=== PATIENT | female | born 1980 | race Caucasian/White ===

== ENCOUNTER 2016-11-30 10:17 | Emergency (ER) | payer SELFPAY ==
[2016-11-30 12:23] LABS: UDS - AMPHET POSITIVE QUAL (NEGATIVE); UDS - BARB NEGATIVE QUAL (NEGATIVE); UDS - BENZO POSITIVE QUAL (NEGATIVE); UDS - COCAINE NEGATIVE QUAL (NEGATIVE); UDS - METH NEGATIVE QUAL (NEGATIVE); UDS - OPIATE NEGATIVE QUAL (NEGATIVE); UDS - PCP NEGATIVE QUAL (NEGATIVE); UDS - THC POSITIVE QUAL (NEGATIVE)
[2016-11-30 12:33] LABS: APPEARANCE HAZY (CLEAR); BACTERIA MODERATE /hpf (NONE SEEN); BILIRUBIN NEGATIVE (NEGATIVE); COLOR ORANGE (YELLOW); EPITHELIAL CELLS 0-5 /hpf (0-5); GLUCOSE NEGATIVE (NEGATIVE); KETONE SMALL mg/dL (NEGATIVE); LEUKOCYTE ESTERASE 1+ (NEGATIVE); NITRITE NEGATIVE (NEGATIVE); PROTEIN TRACE mg/dL (NEGATIVE); RED CELLS - URINE 0-5 /hpf (0-5); SPECIFIC GRAVITY 1.025 (1.005-1.020); UROBILINOGEN NORMAL (NORMAL)
[2016-11-30 12:34] LABS: HCG URINE NEGATIVE (NEGATIVE); MUCUS <1+ /lpf (NONE SEEN)
== END 2016-11-30 14:45 | disposition home or self-care (01) ==
LOC: D.ER 10:17
PROVIDERS: Emergency Medicine; Physician Assistant
DX: R10.9 Unspecified abdominal pain (principal); F19.10 Other psychoactive substance abuse, uncomplicated; F17.200 Nicotine dependence, unspecified, uncomplicated

== ENCOUNTER 2017-04-28 18:04 | Inpatient (IN) | payer SELFPAY ==
[~2017-04-28] VITALS: Ht 162.6 cm; Wt 46.6 kg
[2017-04-28 18:56] LABS: COLOR BROWN (YELLOW)
[2017-04-28 18:57] LABS: APPEARANCE CLEAR (CLEAR); BILIRUBIN 1+ (NEGATIVE); GLUCOSE NEGATIVE (NEGATIVE); KETONE NEGATIVE (NEGATIVE); LEUKOCYTE ESTERASE NEGATIVE (NEGATIVE); NITRITE NEGATIVE (NEGATIVE); PROTEIN NEGATIVE (NEGATIVE)
[2017-04-28 18:58] LABS: BASOPHILS 0.3 % (0-2); EOSINOPHILS 0.6 % (0-7); HEMATOCRIT 40.5 % (36.0-48.0); HEMOGLOBIN 13.9 g/dL (12-16); IMMATURE GRANULOCYTES 0.1 % (0-5); MCH 29.1 pg (26.0-34.0); MCHC 34.3 g/dL (31.0-37.0); MCV 84.9 fL (80.0-100.0); MEAN PLATELET VOLUME 10.9 fL (7.4-10.4); MONOCYTES 6.4 % (2-11); NEUTROPHILS 64.6 % (40-80); PLATELET COUNT 335 10x3/uL (130-400); RBC 4.77 10x6/uL (4.00-5.40); RDW 19.9 % (11.5-14.5)
[2017-04-28 19:00] LABS: BACTERIA MANY /hpf (NONE SEEN); WHITE CELLS - URINE 0-5 /hpf (0-5)
[2017-04-28 19:04] LABS: HCG URINE NEGATIVE (NEGATIVE)
[2017-04-28 19:08] LABS: UDS - AMPHET POSITIVE QUAL (NEGATIVE); UDS - BARB NEGATIVE QUAL (NEGATIVE); UDS - BENZO NEGATIVE QUAL (NEGATIVE); UDS - COCAINE NEGATIVE QUAL (NEGATIVE); UDS - METH NEGATIVE QUAL (NEGATIVE); UDS - OPIATE NEGATIVE QUAL (NEGATIVE); UDS - PCP NEGATIVE QUAL (NEGATIVE); UDS - THC POSITIVE QUAL (NEGATIVE)
[2017-04-28 19:19] LABS: ALBUMIN 3.6 g/dL (3.4-5.0); ALKALINE PHOSPHATASE 526 U/L (46-116); ALT (SGPT) 2348 U/L (10-68); AMYLASE - SERUM 51 U/L (25-115); BILIRUBIN - TOTAL 14.67 mg/dL (0.2-1.3); CALC OSMOLALITY 270 mosm/kg (275-300); CALCIUM 8.9 mg/dL (8.5-10.1); CARBON DIOXIDE 27.9 mmol/L (21.0-32.0); CHLORIDE - SERUM 100 mmol/L (98-107); CREATININE - SERUM 0.4 mg/dL (0.6-1.3); GLUCOSE 90 mg/dL (74-106); LIPASE 199 U/L (73-393); POTASSIUM - SERUM 3.5 mmol/L (3.5-5.1); PROTEIN - SERUM 7.9 g/dL (6.4-8.2); SODIUM 137 mmol/L (136-145); UREA NITROGEN 5 mg/dL (7-18); eGFR NON AFRICAN AMERICAN > 90 mL/min (90-120)
[2017-04-29] VITALS (7 sets, daily range): BP systolic 98–119; BP diastolic 58–78; Ht 162.6 cm; Wt 46.6 kg
--- NOTE | 2017-04-29 00:17 | NUR ---
REPORT RECEIVED FROM BINH BARTLETT FROM THE ED. WAITING FOR PTS ARRIVAL.
--- NOTE | 2017-04-29 00:55 | NUR ---
PT RECEIVED VIA WHEELCHAIR, AWAKE, ALERT, ORIENTED, WITH BOYFRIEND AND FATHER AT BEDSIDE. PT DENIES ANY ACUTE NEEDS AT THIS TIME. CONTINUE TO MONITOR CLOSELY.
--- NOTE | 2017-04-29 02:00 | NUR ---
UPON COMPLETING MY ADMISSION ASSESSMENT, PTS BOYFRIEND, KATELYN ASKED TO TALK TO ME IN PRIVATE. HE STATED THAT PT DOES ACTIVELY USE METHAMPHETAMINE, AND HAS DONE SO RECENTLY. PT STATED IN HER HISTORY THAT SHE DOES NOT USE RECREATIONAL DRUGS. UPON REVIEWING PTS CHART, I NOTICED HER CT ABDOMEN/PELVIS SCAN SHOWS A TAMPON PRESENT IN THE VAGINA. PT STATED DURING HER HX THAT HER LAST MENSES WAS 04/12/17. I DID ASK FAMILY TO LEAVE THE ROOM WHILE I SPOKE TO PT IN PRIVATE ABOUT THIS. PT STATED THAT SHE HAD NO IDEA AND DOES NOT UNDERSTAND HOW THIS COULD HAVE HAPPENED. PT ASKED WHAT WOULD HAPPEN R/T THIS FINDING. I EXPLAINED TO PT THAT SHE COULD TRY AND RETRIEVE IT HERSELF, BUT THAT ONE OF OUR REVENUE ENFORCEMENT AGENT WOULD MOST LIKELY BE CONSULTED FOR REMOVAL. PT IS IN NO ACUTE DISTRESS. ORANGE JELLO AND LEMON ILIAMNA GIVEN TO PT. PT AND BOYFRIEND UNDERSTAND THAT SHE IS ON A CLEAR LIQUID DIET UNTIL FURTHER WORK UP CAN BE CONDUCTED. PT DENIES ANY OTHER NEEDS. CONTINUE TO MONITOR CLOSELY.
--- NOTE | 2017-04-29 04:52 | NUR ---
PT RESTING COMFORTABLY, STATES SHE IS NAUSEATED BUT NO VOMITING AT THIS TIME. PT DENIES ANY OTHER NEEDS. CONTINUE TO MONITOR CLOSELY.
[2017-04-29 05:04] LABS: BASOPHILS 0.4 % (0-2); EOSINOPHILS 1.4 % (0-7); HEMATOCRIT 35.8 % (36.0-48.0); HEMOGLOBIN 12.1 g/dL (12-16); IMMATURE GRANULOCYTES 0.2 % (0-5); LYMPHOCYTES 35.4 % (15-50); MCH 28.7 pg (26.0-34.0); MCHC 33.8 g/dL (31.0-37.0); MEAN PLATELET VOLUME 10.8 fL (7.4-10.4); MONOCYTES 8.3 % (2-11); NEUTROPHILS 54.3 % (40-80); PLATELET COUNT 261 10x3/uL (130-400); RBC 4.21 10x6/uL (4.00-5.40); RDW 20.4 % (11.5-14.5); WBC 5.5 10x3/uL (4.8-10.8)
[2017-04-29 05:32] LABS: ALKALINE PHOSPHATASE 395 U/L (46-116); BILIRUBIN - TOTAL 10.65 mg/dL (0.2-1.3); CALC OSMOLALITY 270 mosm/kg (275-300); CALCIUM 7.9 mg/dL (8.5-10.1); CARBON DIOXIDE 25.4 mmol/L (21.0-32.0); CHLORIDE - SERUM 103 mmol/L (98-107); CREATININE - SERUM 0.5 mg/dL (0.6-1.3); GLUCOSE 95 mg/dL (74-106); POTASSIUM - SERUM 3.4 mmol/L (3.5-5.1); SODIUM 137 mmol/L (136-145); UREA NITROGEN 3 mg/dL (7-18); eGFR NON AFRICAN AMERICAN > 90 mL/min (90-120)
[2017-04-29 05:33] LABS: ALBUMIN 2.6 g/dL (3.4-5.0); ALT (SGPT) 1649 U/L (10-68); PROTEIN - SERUM 5.9 g/dL (6.4-8.2)
--- NOTE | 2017-04-29 07:19 | NUR ---
PT STANDING UP IN ROOM. 2 FAMILY MEMBERS AT BEDSIDE. DENIES NEEDS AT THIS TIME. WILL CONTINUE TO MONITOR
--- NOTE | 2017-04-29 12:12 | HP ---
PATIENT: ZEB MENDEZ MEDICAL RECORD: [id number] ACCOUNT: [id number] LOCATION:[address] : [birth year] ADMISSION DATE: 04/28/17 HISTORY AND PHYSICAL EXAMINATION HISTORY OF PRESENT ILLNESS: A 36-year-old female who presented to the Emergency Room with painless jaundice, although she does admit to some right upper quadrant abdominal tenderness. PAST MEDICAL HISTORY: Significant for times 3, polysubstance abuse. Denies any IV use. Blood transfusion at . Denies having a primary care physician. REVIEW OF SYSTEMS: GENERAL: No known change in weight or appetite. HEENT: No cephalgia, visual changes, tinnitus, epistaxis or dysphagia. CARDIOVASCULAR: Denies chest pain or palpitations. PULMONARY: Denies hemoptysis, denies night sweats. GASTROINTESTINAL: Denies hematemesis, hematochezia or melena. Does admit episodic nausea and vomiting past 5 days, jaundice, yellowing of the eyes and skin. No prior history of liver problems. Denies any significant alcohol use. Does admit to marijuana and meth, oral; denies IV. GENITOURINARY: Denies dysuria. Reports that she has a tampon stuck, this was found as well on CT in the Emergency Room that has been there since 04/26/2017. MUSCULOSKELETAL: No acute changes. ENDOCRINE: Denies polyuria, polydipsia, or polyphagia. MEDICATIONS: No current medications. ALLERGIES: No known drug allergies. PHYSICAL EXAMINATION: VITAL SIGNS: Temperature 98.2, blood pressure is 98/58, heart rate 69, respirations 16, O2 sats 100% room air. GENERAL: Alert and oriented, no present distress. Mild jaundice. HEENT: Eyes icteric. Pupils equally round and reactive. Nares patent. Throat: No erythema. NECK: Supple, no JVD. HEART: Regular rate and rhythm. No S3, S4, no rub. LUNGS: Clear to auscultation bilaterally. Breathing is nonlabored. ABDOMEN: Soft, mild right upper quadrant tenderness. No rebound, no guarding. EXTREMITIES: Present times 4, no edema. NEUROLOGIC: No focal deficits, answers appropriately. SKIN: Warm and dry. Mild jaundice as noted above. LABORATORY DATA: CBC: White count 5.5, hemoglobin 12.1, hematocrit 35.8, platelets 261. Chemistry shows sodium of 137, potassium 3.4, chloride 103, bicarb 25.4, BUN 3, creatinine 0.5, glucose 95, calcium 7.9. Total bilirubin 10.65. AST is 1156, ALT is 1649, alkaline phosphatase 395. Urinalysis: Urine is brown, clear, negative for ketones, trace, blood, negative for nitrites, 1+ bilirubin, many bacteria. CT abdomen and pelvis, mild periportal edema, diffuse gallbladder wall thickening, nondistended gallbladder, portal veins patent. Spleen is normal. Moderate distention of the stomach with gas, solid material, enteric contrast. Uterus and ovaries appear normal. Tampon is oriented transversely in the vagina. This was confirmed discussion with the patient been HISTORY AND PHYSICAL [id number] ZEB MENDEZ JACQUELINE there going on 3-4 days. No other significant findings. Appendix appeared normal. ASSESSMENT: Acute jaundice, polysubstance abuse, denies IV drug use, elevated liver function tests, mild distention in gallbladder, transversely lodged tampon. PLAN: The patient is admitted. IV hydration. GI consulted. We will monitor liver enzymes after aggressive hydration. Consult gynecology, tampon retrieval eval and washing, empiric coverage with antibiotics. I counseled the patient on avoiding illicit substances. We will consult case monitor for outpatient support. TRANSINT:[id number] Voice Confirmation ID: [id number] DOCUMENT ID: [id number] LORENA VELASQUEZ DO at 1212 CC: [id number] DICTATION DATE: 04/29/17 0804 REHAB ASSISTANT: 04/29/17 1036 ADM IN [facility] [address] [place] [place] [id number]
--- NOTE | 2017-04-29 15:04 | NUR ---
ROUNDING COMPLETED WITH AND TAMPON REMOVED FROM PTS VAGINA. PT VOICED RELIEF AND THANKS AND IS WANTING TO SHOWER AT THIS TIME. DISCONNECTED PT FROM IV FLUIDS AND WRAPPED PIV. PT DENIES ANY FURTHER NEEDS AT THIS TIME. WILL CTM.
--- NOTE | 2017-04-29 17:03 | NUR ---
Patient Name: ZEB MENDEZ Admission Status: ER Accout number: [id number] Admission Date: 04-28-2017 : 1980 Admission Diagnosis:UNSPECIFIED JAUNDICE Attending: JANEL Current LOS: 1 Anticipated DC Date: Planned Disposition: Home Primary Insurance: UNINSURED DISCOUNT PLAN Discharge Planning Comments: * Is the patient Alert and Oriented? Yes 0 * How many steps to enter\exit or inside your home? 1 0 * PCP NONE 0 * Pharmacy [facility] 0 * Preadmission Environment Home with Family 0 * ADLs Independent 0 * Equipment None 0 * Other Equipment NO MEDICAL EQUIPMENT PROVIDER PREFERENCE 0 * List name and contact numbers for known caregivers / representatives who currently or will assist patient after discharge: ROGELIO JAMISON, MOTHER, KATELYN ELIZONDO, SIGNIFICANT OTHER, 0 * Community resources currently utilized None 0 * Please name any agencies selected above. NONE 0 * Additional services required to return to the preadmission environment? No 0 * Can the patient safely return to the preadmission environment? Yes 0 * Has this patient been hospitalized within the prior 30 days at any hospital? No 0 CM RECEIVED ORDER FOR DISCHARGE PLANNING DUE TO PT'S POSSIBLE HOMELESSNESS AND DRUG USE. CM MET WITH PT IN ROOM TO DISCUSS DISCHARGE PLANNING, NEEDS AND ORDER. PT REPORTS LIVING AT DIFFERENT FRIENDS HOME, INDEPENDENTLY WITH HER SIGNIFICANT OTHER. PT DENIES BEING HOMELESS. PT IS FAMILIAR WITH LOCAL [facility] AND REPORTS THERE ARE NONE LOCALLY THAT SHE AND HER SIGNICANT OTHER CAN STAY IN TOGETHER. PT REPORTS SHE HAS CUT BACK ON CIGARETTE USE TO 4-5 PER DAY AND LIKEWISE FOR DRUGS AND ALCOHOL, REPORTING SHE GENERALLY DOES NOT USE UNLESS SHE IS VERY STRESSED OUT. PT DENIES NEED FOR REHAB SERVICES OR COMMUNITY SUPPORT PROGRAMS, DENIES NEED OF INFORMATION ON THEM. PT HAS NO MEDICAL EQUIPMENT AND NO OUTSIDE SERVICES ASSISTING IN THE HOME. CM DISCUSSED AVAILABILITY OF HOME HEALTH, REHAB SERVICES AND MEDICAL EQUIPMENT. 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 PT REPORTS HOSPITAL PERSONNEL HAVE MET WITH HER TODAY TO ASSIST WITH MEDICAID APPLICATION. PT DENIES DISCHARGE NEEDS, REPORTS HER FRIEND WILL PICK BOTH SHE AND HER SIGNIFICANT OTHER UP FOR DISCHARGE AND THEY PLAN TO STAY IN A LOCAL [place] AFTER DISCHARGE. PT PLANS TO DISCHARGE WITH HER SIGNIFICANT OTHER AND STAY IN LOCAL HOTEL, DENIES NEEDS FOR DISCHARGE AT THIS TIME. Banquet Houseperson: Roland Cavazos
--- NOTE | 2017-04-29 20:20 | NUR ---
PT LYING IN BED ON RIGHT SIDE, STOIC, BOYFRIEND AT BEDSIDE. HE STATES PT HAS BEEN "GROUCHY" TODAY. PT DID NOT ACKNOWLEDGE ME AT THIS TIME. WILL CONTINUE TO MONITOR CLOSELY. BED LOW, CALL LIGHT IN REACH, SIDE RAILS X 2, HOB FLAT.
--- NOTE | 2017-04-29 21:32 | NUR ---
GAVE PT HER VG FLAGYL WITH INSTRUCTIONS ON HOW TO USE. ALSO GAVE ARNOLD PAD PER PT REQUEST AND CHEY TO ASSIST WITH INSERTION OF VG FLAGYL. PT DENIES ANY NEEDS AT THIS TIME. CONTINUE TO MONITOR CLOSELY.
--- NOTE | 2017-04-30 00:54 | NUR ---
PT IS C/O ABD PAIN AND BLOATING. WHEN ASKED ABOUT LAST BM, SHE STATES IT WAS YESTERDAY PRIOR TO ADMIT. I DID OFFER HER PRUNE JUICE, IN WHICH HAS DECLINED AT THIS TIME. WILL CONTINUE TO MONITOR PT CLOSELY.
[2017-04-30 04:00] VITALS: BP 106/64
--- NOTE | 2017-04-30 04:19 | NUR ---
PT LYING IN BED RESTING COMFORTABLY, BOYFRIEND RESTING NEXT TO HER. LAB RECENTLY IN ROOM FOR BLOOD DRAW, PT DENIED ANY NEEDS. CONTINUE TO MONITOR CLOSELY.
[2017-04-30 04:22] LABS: BASOPHILS 0.4 % (0-2); EOSINOPHILS 2.9 % (0-7); HEMOGLOBIN 11.9 g/dL (12-16); LYMPHOCYTES 45.1 % (15-50); MCV 85.4 fL (80.0-100.0); MEAN PLATELET VOLUME 10.5 fL (7.4-10.4); MONOCYTES 7.8 % (2-11); NEUTROPHILS 43.8 % (40-80); PLATELET COUNT 277 10x3/uL (130-400); RDW 20.7 % (11.5-14.5); WBC 4.9 10x3/uL (4.8-10.8)
[2017-04-30 04:52] LABS: ALBUMIN 2.3 g/dL (3.4-5.0); ALKALINE PHOSPHATASE 356 U/L (46-116); ALT (SGPT) 1311 U/L (10-68); BILIRUBIN - DIRECT 7.98 mg/dL (0.00-0.30); BILIRUBIN - INDIRECT 2.33 mg/dL (0.00-1.00); BILIRUBIN - TOTAL 10.31 mg/dL (0.2-1.3); CALC OSMOLALITY 268 mosm/kg (275-300); CALCIUM 7.8 mg/dL (8.5-10.1); CARBON DIOXIDE 26.5 mmol/L (21.0-32.0); CHLORIDE - SERUM 104 mmol/L (98-107); CHOL - HDL RATIO 24.3 ratio (2.3-4.1); CHOLESTEROL, TOTAL 194 mg/dL (0-200); CREATININE - SERUM 0.5 mg/dL (0.6-1.3); GLUCOSE 86 mg/dL (74-106); HDL CHOLESTEROL 8 mg/dL (32-96); LDL CHOLESTEROL 162 mg/dL (0-100); LDL-HDL RATIO 20.3 ratio (1.5-3.5); MAGNESIUM - SERUM 1.6 mg/dL (1.8-2.4); PHOSPHOROUS 2.8 mg/dL (2.5-4.9); PROTEIN - SERUM 5.7 g/dL (6.4-8.2); SODIUM 136 mmol/L (136-145); TRIGLYCERIDE 122 mg/dL (30-200); UREA NITROGEN 6 mg/dL (7-18); eGFR NON AFRICAN AMERICAN > 90 mL/min (90-120)
--- NOTE | 2017-04-30 07:15 | NUR ---
RECEIVED REPORT. ASSUMED CARE OF PATIENT. RESTING ON LEFT LATERAL SIDE. EYES CLOSED, EASILY AROUSED. MALE VISITOR IN CHAIR AT BEDSIDE. IV FLUIDS INFUSING ORDERED.CALL LIGHT WITHIN REACH. NO DISTRESS.
[2017-04-30 08:00] VITALS: BP 116/77
[2017-04-30 09:11] LABS: HEPATITIS C ANTIBODY <0.1 (0.0-0.9)
[2017-04-30] MEDS ORDERED: FLAGYL70 GM VG (09:25)
--- NOTE | 2017-04-30 11:57 | NUR ---
NOTIFIED OF HEPATITIS PANEL RESULTS. NO NEW ORDERS RECEIVED. WILL STRESS TO PATIENT TO MAKE SURE THAT SHE FOLLOWS UP WITH PCP AND GI.
[2017-04-30 12:00] VITALS: BP 105/65
[2017-04-30 13:07] LABS: INR 1.24 (0.85-1.17); PROTIME 15.5 SECONDS (11.6-15.0)
--- NOTE | 2017-04-30 14:02 | NUR ---
1350 20 GAUGE IV CATHETER REMOVED FROM LEFT HAND. CATHETER TIP INTACT. NO BLEEDING FROM SITE. 2X2 GAUZE APPLIED AND SECURED WITH TAPE. 1355 DISCHARGE INSTRUCTIONS AND TEACHING PROVIDED. STRESSED THE IMPORTANCE OF FOLLOW UP VISITS AND WENT OVER EDUCATION ABOUT THE SPRED OF HEPATITIS. PATIENT VERBALIZED HER UNDERSTANDING AND STATED SHE WOULD FOLLOW UP WITH THE PHYSICIANS. PATIENT PACKING HER BELONGINGS AT THIS TIME. NO DISTRESS.
--- NOTE | 2017-04-30 14:43 | NUR ---
PATIENT DID NOT LET THIS TREADLE CUT OFF SAW OPERATOR KNOW THAT SHE WAS READY TO LEAVE THE UNIT AND HAS LEFT WITH ALL OF HER PERSONAL BELONGINGS.
--- NOTE | 2017-05-01 08:41 | DS ---
PATIENT:ZEB MENDEZ :80 MEDICAL RECORD: [id number] DISCHARGE SUMMARY ADMISSION DATE: 04/28/17 DISCHARGE DATE: 04/30/17 DATE OF ADMISSION: 04/28/2017 DATE OF DISCHARGE: 04/30/2017 CONDITION ON DISCHARGE: Improved. ADMITTING DIAGNOSES: Painless jaundice, history of polysubstance abuse, IV drug use, elevated LFTs and retained tampon. DISCHARGE DIAGNOSES: 1. Retained tampon, removed. 2. Hepatocellular dysfunction secondary to polysubstance abuse, acute hepatitis related to methamphetamine use, as well as metabolic insults. HOSPITAL COURSE: This patient is a 36-year-old female, who presented to the Emergency Room with painless jaundice. She was admitted with a right upper quadrant tenderness. PHYSICAL EXAMINATION: GENERAL: She is a very thin female, who is in no acute distress. She was alert. She was oriented times 3. She was mildly jaundiced. EYES: Icteric. HENT: Unremarkable. ABDOMEN: She has some right upper quadrant tenderness. She had a white count of 5.5, her hemoglobin is 12.1, hematocrit is 35.8 and platelets 261. She had AST elevated at 1156, ALT was 1649 and alkaline phosphatase 395. Urinalysis did show bilirubin. CT scan of the abdomen and pelvis did reveal retained tampon. The patient did have periportal edema with gallbladder wall edema, nonspecific findings correspond with acute hepatitis, hyperproteinemia, or chronic liver disease, less likely for acute cholecystitis. The patient was seen in consultation by deployment technician after she was receiving IV hydration. Hepatitis profile was ordered. The patient also had an AINSLEY, smooth muscle mitochondrial antibodies, as well as LKM was ordered. Case management also was consulted for needs upon discharge. She was seen in consultation by Dr. Aiyana Horton, JOINERY MACHINIST, who did remove the retained tampon and suggested that she receive metronidazole 5 grams per vagina at bedtime for 1 week. Over the following days, the patient's LFTs were trending downward, had an improvement; therefore, it was felt the patient was stable and could be discharged awaiting pending labs. Therefore, the patient was discharged. Her medications were Flagyl 5 grams at bedtime times 1 week. She was also to be on a bland diet, her activity was ad neyda. She was advised to have no illicit drug use, Tylenol, or EtOH. She was to call for followup with GI as well as PCP on Tuesday. The patient was advised to seek drug rehabilitation as well. TRANSINT:[id number] Voice Confirmation ID: [id number] DOCUMENT ID: [id number] DISCHARGE SUMMARY REPORT [id number] ZEB MENDEZ JAMES MD at 0841 CC: [id number] DICTATION DATE: 04/30/17 0955 APPLICATION RELEASE MANAGER: 04/30/17 1035 DIS IN 04/30/[address] [address]
[2017-05-02 11:12] LABS: ANA REFLEX - DIRECT Negative (Negative)
== END 2017-04-30 14:46 | disposition home or self-care (01) | DRG 443 ==
LOC: D.ER 18:04 → D.M2 23:40
PROVIDERS: Family Medicine; Internal Medicine Gastroenterology; Nurse Practitioner Acute Care; ADMIT Family Medicine
DX: B16.9 Acute hepatitis B without delta-agent and without hepatic coma (principal); F15.229 Other stimulant dependence with intoxication, unspecified; K82.8 Other specified diseases of gallbladder; E87.6 Hypokalemia; E88.09 Other disorders of plasma-protein metabolism, not elsewhere classified; T19.2XXA Foreign body in vulva and vagina, initial encounter; X58.XXXA Exposure to other specified factors, initial encounter; K21.9 Gastro-esophageal reflux disease without esophagitis; F31.9 Bipolar disorder, unspecified; Z72.0 Tobacco use